=== PATIENT | female | born 1990 | race Caucasian/White ===

== ENCOUNTER 2017-02-09 07:35 | Emergency (ER) | payer OTHER ==
[~2017-02-09] VITALS: Ht 157.5 cm; Wt 61.8 kg
[2017-02-09 07:40] VITALS: BP 109/62; TEMP 98.4
[2017-02-09] MEDS ORDERED: ZYRTEC 10MG10 MG PO (07:43)
[2017-02-09 08:23] LABS: HEMATOCRIT 42.4 % (37.0-47.0); HEMOGLOBIN 14.5 g/dl (12.5-16.0); MEAN CELL VOLUME 92 fl (80.0-100.0); MEAN CORPUSCULAR HEMOGLOBIN 32 pg (27.0-31.0); MEAN CORPUSCULAR HGB CONC 34 g/dl (33.0-37.0); MEAN PLATELET VOLUME 8.6 fl (7.4-10.4); PLATELET COUNT 251 K/mm3 (130-400); RED BLOOD COUNT 4.61 M/mm3 (4.10-5.30); WHITE BLOOD COUNT 9.5 K/mm3 (4.8-10.8)
[2017-02-09 08:25] LABS: ADD PATHOLOGY DIFF REVIEW NO
[2017-02-09 08:32] LABS: CALCIUM 8.9 mg/dL (8.4-10.2); CREATININE, serum 0.74 mg/dL (0.52-1.25); POTASSIUM 3.9 mmol/L (3.4-5.0)
[2017-02-09 08:59] LABS: BAND 39 % (0-10); LYMPHOCYTE 6 % (20.0-51.0); MYELOCYTE 1 % (0-0); NEUTROPHILS 54 % (42.0-75.2); PLATELET ESTIMATE NORMAL (NORMAL); TOTAL CELLS COUNTED 100
[2017-02-09] MEDS ORDERED: ZOFRAN 4MG T4 MG/TAB PO (09:04)
[2017-02-09] MEDS ORDERED: PHENERGAN 25 TA25 MG PO (09:32)
[2017-02-09 09:33] VITALS: PULSE 102
== END 2017-02-09 10:40 | disposition home or self-care (01) ==
LOC: COL.ER 07:35
PROVIDERS: Nurse Practitioner
DX: K52.9 Noninfective gastroenteritis and colitis, unspecified (principal)
CPT/HCPCS: J2405; J2550; J7030